=== PATIENT | female | born 1985 | race Caucasian/White ===

== ENCOUNTER 2018-08-04 16:21 | Emergency (ER) | payer MEDICAID ==
[2018-08-04] MEDS ORDERED: Ketorolac Tromethamine 30 MG/ML VIAL ONE (16:59)
[2018-08-04] MEDS ORDERED: Diazepam 5 MG TAB ONE (17:06)
[2018-08-04] MEDS ORDERED: Dexamethasone 4 MG TAB ONE (17:07)
--- NOTE | 2018-08-04 17:20 | RAD ---
ONE VIEW CHEST: 08/04/18 HISTORY: Pain. FINDINGS: Normal cardiac silhouette. Pulmonary vessels and hilum are normal. Costophrenic angles are clear. Bib asilar infiltrates, left greater than right. No pneumothorax or osseous abnormalities. IMPRESSION: Bibasilar infiltrates, left greater than right. POS: [facility]
== END 2018-08-04 17:20 | disposition home or self-care (01) ==
LOC: ERS 16:21
DX: J18.9 Pneumonia, unspecified organism (principal); F41.9 Anxiety disorder, unspecified; F31.9 Bipolar disorder, unspecified; Z87.891 Personal history of nicotine dependence
CPT/HCPCS: 71045; 93005; 96374; J1885; J8540

== ENCOUNTER 2018-08-06 06:48 | Emergency (ER) | payer MEDICAID ==
[2018-08-06 08:02] LABS: #Basophils 0.1 thou/uL (0.0-0.2); #Lymphocytes 1.3 thou/uL (1.20-3.40); #Monocytes 0.6 thou/uL (0.11-0.59); #Neutrophils 2.9 thou/uL (1.40-6.50); %Basophils 1.1 % (0.0-1.0); %Eosinophils 0.7 % (0.0-10.0); %Lymphocytes 26.5 % (21.0-51.0); %Monocytes 11.4 % (0.0-10.0); %Neutrophils 60.3 % (42.0-75.0); Hemoglobin 13.4 g/dL (12.0-16.0); Mean Corpuscular HGB CONC 34.3 g/dL (32.0-36.0); Mean Corpuscular Hemoglobin 32.2 pg (27.0-31.0); Mean Corpuscular Volume 94.1 fL (78.0-98.0); Mean Platelet Volume 8.2 fL (7.4-10.4); Platelet Count 212 thou/uL (130-400); RBC Distribution Width 10.9 % (11.5-14.5); Red Blood Cell (RBC) Count 4.15 mill/uL (4.20-5.40); White Blood Cell (WBC) Count 4.8 thou/uL (4.8-10.8)
[2018-08-06 08:21] LABS: ALT (SGPT) 14 U/L (8-55); AST (SGOT) 14 U/L (5-34); Albumin 4.2 g/dL (3.5-5.0); Alkaline Phosphatase 46 U/L (40-150); Anion Gap 12 mmol/L (10-20); BUN (Urea Nitrogen) 8 mg/dL (7.0-18.7); Bilirubin, Total 0.4 mg/dL (0.2-1.2); Calc. Creatinine Clearance 0 mL/min (70-130); Calcium 8.9 mg/dL (7.8-10.44); Carbon Dioxide 25 mmol/L (22-29); Chloride 108 mmol/L (98-107); Estimated GFR-MDRD 86; Globulin 2.7 g/dL (2.4-3.5); Glucose 81 mg/dL (70-105); Potassium 3.6 mmol/L (3.5-5.1); Protein, Total 6.9 g/dL (6.0-8.3); Sodium 141 mmol/L (136-145)
--- NOTE | 2018-08-06 09:46 | RAD ---
CHEST PA AND LATERAL: HISTORY: A 33-year-old female with a history of cough. COMPARISON: 08/04/2018. FINDINGS: The previously noted patchy parenchymal process in the left lower lobe is markedly improved. No new confluent pneumonia. Heart size is normal. The right lung is clear. IMPRESSION: Marked improvement in the previously noted patchy parenchymal changes in the left lower lobe. Eviden ce for resolving pneumonia. POS: [facility]
== END 2018-08-06 09:23 | disposition home or self-care (01) ==
LOC: ERS 06:48
DX: J18.9 Pneumonia, unspecified organism (principal); F31.9 Bipolar disorder, unspecified; F41.9 Anxiety disorder, unspecified; Z87.891 Personal history of nicotine dependence
CPT/HCPCS: 36415; 71046; 80053; 83605; 85025; 87040; 87149; 96365; J1956

== ENCOUNTER 2018-08-09 14:41 | Emergency (ER) | payer MEDICAID | END 2018-08-09 15:40 | disposition home or self-care (01) | LOC: ERS 14:41 | DX: L25.9 Unspecified contact dermatitis, unspecified cause (principal); D64.9 Anemia, unspecified; F41.9 Anxiety disorder, unspecified; F31.9 Bipolar disorder, unspecified; Z87.891 Personal history of nicotine dependence | CPT/HCPCS: 99283 ==